=== PATIENT | male | born 1995 | race Caucasian/White ===

== ENCOUNTER 2022-02-21 05:20 | Emergency (ER) | payer SELFPAY ==
[~2022-02-21] VITALS: Ht 172.7 cm; Wt 76.2 kg
[2022-02-21 05:30] VITALS: BP 120/70
--- NOTE | 2022-02-21 05:46 | NUR ---
PT TO LOBBY
[2022-02-21] MEDS ORDERED: IBUP-2213 PO ×2 (08:25→08:55)
[2022-02-21] MEDS ORDERED: ACET-10509 PO ×2 (08:25→08:55)
[2022-02-21 08:55] VITALS: BP 141/81
--- NOTE | 2022-02-21 08:55 | NUR ---
Patient discharged with v/s stable. Written and verbal after care instructions ABOUT NASAL FRACTURE AND CONTUSION given and explained. Patient alert, oriented and verbalized understanding of instructions. Ambulatory with steady gait. All questions addressed prior to discharge. ID band removed. Patient advised to follow up with PMD. Rx of TYLENOL AND MOTRIN given. Patient educated on indication of medication including possible reaction and side effects. Opportunity to ask questions provided and answered.
== END 2022-02-21 08:55 | disposition home or self-care (01) ==
LOC: MED 05:20
DX: S02.2XXA Fracture of nasal bones, initial encounter for closed fracture (principal); R07.89 Other chest pain; Z79.899 Other long term (current) drug therapy; Y04.2XXA Assault by strike against or bumped into by another person, initial encounter; Y93.89 Activity, other specified; Y92.89 Other specified places as the place of occurrence of the external cause; Y99.8 Other external cause status
CPT/HCPCS: 70450; 70486; 71045; 99284